=== PATIENT | male | born 1955 | race Caucasian/White ===

== ENCOUNTER 2016-11-04 12:59 | Emergency (ER) | payer BC ==
--- NOTE | 2016-11-04 13:27 | EDM.PDOC ---
ED HPI GENERAL MEDICAL PROBLEM - General Stated Complaint: LEG SWELLING Time Seen by Provider: 11/04/16 12:59 Source of Information: Reports: Patient, Family History Limitations: Reports: Physical impairment - History of Present Illness INITIAL COMMENTS - FREE TEXT/NARRATIVE: 61 years old w m with medical syndrome, lymphedema, come to the ed with his SO due to acute swelling of his left leg with redness and ulcerations. No SOB, No CP or other acute medical issues at this time. Onset: gradual Onset Date: 11/01/16 Onset Time: 09:00 Duration: Day(s):, Getting worse Location: Reports: lower extremity, left Quality: Reports: Burning, Dull, Pressure Severity: moderate Improves with: Reports: None Worsens with: Reports: None Context: Reports: Other (morbid obesity, H/O lymphedema) Associated Symptoms: Reports: rash - Related Data Allergies Allergy/AdvReac Type Severity Reaction Status Date / Time Penicillins Allergy Rash Verified 11/04/16 13:10 Home Meds: Home Meds Albuterol [IJP: Ventolin HFA] 2 puff INH .TWICE DAILY 11/04/16 [History] Aspirin 325 mg PO DAILY 11/04/16 [History] Budesonide/Formoterol [Symbicort 160-4.5 MCG] 1 puff INH BID 11/04/16 [History] Enoxaparin [Lovenox] 160 mg SUBCUT BID #10 syringe 11/04/16 [Rx] Erythromycin Stearate 500 mg PO Q6HR #40 tablet 11/04/16 [Rx] Furosemide [Lasix] 20 mg PO DAILY PRN 11/04/16 [History] Losartan/Hydrochlorothiazide [Hyzaar 100-25 Tablet] 1 tab PO DAILY 11/04/16 [ History] Metoprolol Succinate 1 tab PO DAILY 11/04/16 [History] Pramipexole [Mirapex] 1.5 mg PO BEDTIME 11/04/16 [History] Tiotropium [Spiriva] 18 mcg INH BID 11/04/16 [History] Triamcinolone Acetonide [Triamcinolone Acetonide 0.1% Crm] 15 gm TOP BID [History] amLODIPine [Norvasc] 10 mg PO DAILY 11/04/16 [History] atorvaSTATin [Lipitor] 20 mg PO ONETIME 11/04/16 [History] metFORMIN [Glucophage] 500 mg PO BIDMEALS 11/04/16 [History] ED ROS GENERAL - Review of Systems Review Of Systems: See Below Constitutional: Reports: weight gain HEENT: Reports: No symptoms Respiratory: Reports: No Symptoms Cardiovascular: Reports: No symptoms Endocrine: Reports: no symptoms GI/Abdominal: Reports: No symptoms : Reports: no symptoms Musculoskeletal: Reports: no symptoms Skin: Reports: rash, erythema (left leg) Neurological: Reports: No Symptoms Psychiatric: Reports: No symptoms Hematologic/Lymphatic: Reports: other (lymphedema left lower leg) Immunologic: Reports: no symptoms ED EXAM, GENERAL - Physical Exam Exam: See Below General Appearance: alert, WD/WN, mild distress Eye Exam: bilateral eye: normal inspection Ears: normal external exam Ear Exam: bilateral ear: auricle normal Nose: normal inspection, normal mucosa Throat/Mouth: Normal inspection, Normal lips, Normal oropharynx Head: atraumatic, normocephalic Neck: normal inspection, supple, non-tender Respiratory/Chest: no respiratory distress, lungs clear, normal breath sounds, no accessory muscle use, chest non-tender Cardiovascular: normal peripheral pulses, regular rate, rhythm, tachycardia Peripheral Pulses: 2+: femoral (L), femoral (R) GI/Abdominal: normal bowel sounds, soft, non tender (Male) Exam: Deferred Rectal (Males) Exam: Deferred Back Exam: normal inspection, full range of motion Extremities: normal capillary refill, pedal edema, limited range of motion ( left lower leg) Neurological: alert, oriented, CN II-XII intact, normal cognition, no motor/ sensory deficits Psychiatric: normal affect, normal mood Skin Exam: Erythema, Increased warmth, Rash, Wound/incision (abrasions) EKG INTERPRETATION EKG Date: 11/04/16 Time: 14:50 Rhythm: NSR Rate (beats/min): 108 [place]: normal P-wave: present QRS: normal ST-T: normal QT: normal Comparison: NA - no prior EKG Course - Vital Signs Text/Narrative:: 61 years old w m with medical syndrome, lymphedema, come to the ed with his SO due to acute swelling of his left leg with redness and ulcerations. No SOB, No CP or other acute medical issues at this time. PE: Morbid obese. Left leg swollen, edematous with ulcerations Imaging: US left leg unable to obtain due to the patient's anatomy, will consult [facility] Labs: Cr. 2.1, BUN 47, WBC 17.6K with bandemia Na 129 Impression: Left leg swelling, cellulitis left leg with ulcerations. Can not R/ O DVT left leg, NIDDM, Metabolic syndrome, morbid obesity. Renal Insufficiency Consultation: Intervential radiologist [facility]: Has a diffent US machine and he may be able to r/o or R/i a dvt left leg Pt refused vehemently I.V Abx, refused admission, refused to be transported to go to [facility] for Venous doppler left leg. Tx: EES, Lovenox Plan: Pt refused to be admitted. D/C with instructions Last Recorded V/S: Last Vital Signs Temp 37.6 C 11/04/16 13:00 Pulse 102 H 11/04/16 13:00 Resp 20 11/04/16 13:00 BP 112/46 L 11/04/16 13:00 Pulse Ox 96 11/04/16 13:00 - Orders/Labs/Meds Orders: Active Orders 24 hr Category Date Time Status Extremity Non Vascular LTD [US] Stat Exams 11/04/16 13:24 Taken CULTURE BLOOD [BC] Urgent Lab 11/04/16 13:35 Received CULTURE BLOOD [BC] Urgent Lab 11/04/16 13:35 Received Blood Culture x2 Reflex Set [OM.PC] Urgent Oth 11/04/16 13:24 Ordered Labs: Laboratory Tests 11/04/16 11/04/16 11/04/16 Range/Units 13:35 13:35 13:35 WBC 17.6 H (4.5-12.0) X10-3/uL RBC 5.21 (4.30-5.75) x10(6)uL Hgb 15.1 (11.5-15.5) g/dL Hct 46.2 (30.0-51.3) % MCV 88.6 (80-96) fL MCH 29.0 (27.7-33.6) pg MCHC 32.8 (32.2-35.4) g/dL RDW 13.6 (11.5-15.5) % Plt Count 160 (125-369) X10(3)uL MPV 8.1 (7.4-10.4) fL Add Manual Diff Yes Neutrophils % (Manual) 56 (46-82) % Band Neutrophils % 32 H* (0-6) % Lymphocytes % (Manual) 4 L (13-37) % Monocytes % (Manual) 2 L (4-12) % Metamyelocytes % 5 H (0-0) % Myelocytes % 1 H (0-0) % Toxic Granulation Moderate H (NOT SEEN) PT 13.9 H (8.7-11.1) INR 1.37 H (0.89-1.13) Sodium 129 L (135-145) mmol/L Potassium 4.5 (3.5-5.3) mmol/L Chloride 94 L (100-110) mmol/L Carbon Dioxide 22 L (23-29) mmol/L BUN 47 H (8-23) mg/dL Creatinine 2.1 H* (0.6-1.3) mg/dL Est Cr Clr Drug Dosing 40.03 mL/min Estimated GFR (MDRD) 32 L (>60) BUN/Creatinine Ratio 22.4 H (9-20) Glucose 120 H (80-116) mg/dL Hemoglobin A1c (4.0-6.0) % Calcium 8.4 L (8.6-10.2) mg/dL 11/04/16 Range/Units 13:35 WBC (4.5-12.0) X10-3/uL RBC (4.30-5.75) x10(6)uL Hgb (11.5-15.5) g/dL Hct (30.0-51.3) % MCV (80-96) fL MCH (27.7-33.6) pg MCHC (32.2-35.4) g/dL RDW (11.5-15.5) % Plt Count (125-369) X10(3)uL MPV (7.4-10.4) fL Add Manual Diff Neutrophils % (Manual) (46-82) % Band Neutrophils % (0-6) % Lymphocytes % (Manual) (13-37) % Monocytes % (Manual) (4-12) % Metamyelocytes % (0-0) % Myelocytes % (0-0) % Toxic Granulation (NOT SEEN) PT (8.7-11.1) INR (0.89-1.13) Sodium (135-145) mmol/L Potassium (3.5-5.3) mmol/L Chloride (100-110) mmol/L Carbon Dioxide (23-29) mmol/L BUN (8-23) mg/dL Creatinine (0.6-1.3) mg/dL Est Cr Clr Drug Dosing mL/min Estimated GFR (MDRD) (>60) BUN/Creatinine Ratio (9-20) Glucose (80-116) mg/dL Hemoglobin A1c 6.4 H (4.0-6.0) % Calcium (8.6-10.2) mg/dL Meds: Medications Discontinued Medications Generic Name Dose Route Start Last Admin Trade Name Freq PRN Reason Stop Dose Admin Enoxaparin Sodium 161 mg 11/04/16 14:16 11/04/16 15:24 Lovenox SUBCUT 11/04/16 14:17 Not Given ONETIME ONE Enoxaparin Sodium 160 mg 11/04/16 14:29 11/04/16 14:45 Lovenox SUBCUT 11/04/16 14:30 160 mg ONETIME ONE Administration Erythromycin 500 mg 11/04/16 15:00 11/04/16 15:14 José Antonio-Tab PO 11/04/16 15:01 500 mg ONETIME STA Administration Erythromycin 2,000 mg 11/04/16 15:23 José Antonio-Tab PO 11/04/16 15:24 ONETIME STA Erythromycin/Sulfisoxazole 500 mg 11/04/16 14:33 11/04/16 15:24 Pediazole Susp PO 11/04/16 14:34 Not Given ONETIME STA Departure - Departure Time of Disposition: 14:56 Disposition: Home, Self-Care 01 Condition: fair Clinical Impression: Left leg swelling, Lymphedema of extremity Cellulitis Qualifiers: Site of cellulitis: extremity Site of cellulitis of extremity: lower extremity Laterality: left Qualified Code(s): L03.116 - Cellulitis of left lower limb Prescriptions: Erythromycin Stearate 500 mg PO Q6HR #40 tablet Enoxaparin [Lovenox] 160 mg SUBCUT BID #10 syringe Referrals: Jocelynn Gupta ELECT[employer] MECH[employer]IC APPRENTICE [Primary Care Provider] - Forms: ED Department Discharge Additional Instructions: Please apply Lovenox SQ as recommended, please take erythromycin as recommended. Please F/U a.s.a.p with your PMD or come back if symptoms get worse acutely. - My Orders Last 24 Hours: My Active Orders 11/04/16 13:24 Extremity Non Vascular LTD [US] Stat Blood Culture x2 Reflex Set [OM.PC] Urgent 11/04/16 13:35 CULTURE BLOOD [BC] Urgent CULTURE BLOOD [BC] Urgent - Assessment/Plan Last 24 Hours: My Active Orders 11/04/16 13:24 Extremity Non Vascular LTD [US] Stat Blood Culture x2 Reflex Set [OM.PC] Urgent 11/04/16 13:35 CULTURE BLOOD [BC] Urgent CULTURE BLOOD [BC] Urgent
[2016-11-04 13:58] VITALS: BP 112/46
[2016-11-04] MEDS ORDERED: Enoxaparin 120 MG/0.8 ML Syringe SUBCUT ONE (14:16)
[2016-11-04] MEDS ORDERED: Enoxaparin 80 MG/0.8 ML Syringe SUBCUT ONE (14:29)
[2016-11-04] MEDS ORDERED: [UNRECOGNIZED DRUG - REMARK] PO STA (14:33)
--- NOTE | 2016-11-05 12:20 | US ---
INDICATION: Swelling, left leg pain. Question DVT. DUPLEX ULTRASOUND LEFT LOWER EXTREMITY VEINS: Multiple ultrasonic images were obtained. However, they are non-diagnostic due to the patients body habitus and extreme swelling. The CFV and proximal-most femur were able to be visualized and appear to be patent. The remainder of the lower extremity was not adequately visualized. MTDD
== END 2016-11-04 15:15 | disposition home or self-care (01) ==
LOC: FB.ED 12:59
DX: L03.116 Cellulitis of left lower limb (principal); I89.0 Lymphedema, not elsewhere classified; Z88.0 Allergy status to penicillin; Z79.82 Long term (current) use of aspirin; Z79.899 Other long term (current) drug therapy; Z79.84 Long term (current) use of oral hypoglycemic drugs
CPT/HCPCS: 36415; 76882; 80048; 83036; 85025; 85610; 87040; 96372; 99284; A9270; J1650